=== PATIENT | female | born 1975 | race Two or more races ===

== ENCOUNTER 2016-11-18 00:02 | Emergency (ER) | payer OTHER ==
[2016-11-18 00:22] VITALS: TEMP 98.4
--- NOTE | 2016-11-18 00:28 | EDPHY ---
H & P HPI/ROS: CHIEF COMPLAINT: Multiple complaints HISTORY OF PRESENT ILLNESS: Patient arrives by EMS with complaints of paresthesias, spasms of the hands and feet, perioral cyanosis and tingling, near -syncope. Symptoms started abruptly upon arriving to a hospital where her daughter was being evaluated for possible syncope. She says that she felt the symptoms mildly at 1st. The began to worsen upon driving home. The symptoms persisted until she got home and called 911. At time of arrival she began to feel minimally better. At this time she is feeling significantly better. She had no chest pain. She does have a nonspecific rash that worsened during this. This has happened consistently over the past 3 years during similar episodes. She has no recent travel or surgery. No trauma or injury. No chest pain or shortness of breath. No fever chills. She reports removal of an implanon control device 2 months ago. Since then she has not had a full menstrual cycle but does have some spotting. No other associated complaints or modifying factors. All information was obtained with the assistance of Slovak educational sign language interpreter at bedside. REVIEW OF SYSTEMS: Ten systems reviewed and are negative unless otherwise noted in the HPI PAST MEDICAL HISTORY: Denies any medical diagnoses. Implanon removed 2 months ago. SOCIAL HISTORY: Nonsmoker. FAMILY HISTORY: Noncontributory EXAMINATION General Appearance: Alert, no distress Head: normocephalic, atraumatic Eyes: Pupils equal and round, no conjunctival pallor or injection ENT, Mouth: Mucous membranes moist. Airway widely patent. Uvula is midline. Neck: Normal inspection, supple, non-tender Respiratory: Lungs are clear to auscultation. No wheezing, rhonchi or crackles. Cardiovascular: Regular rate and rhythm. No murmur. Pulses intact distally in symmetrically. Gastrointestinal: Abdomen is soft and nontender Back: non-tender, no bony abnormalities Neurological: GCS 15. Cranial nerves 2-12 grossly intact. Strength is symmetric in all limbs. No pronator drift. A&O, nonfocal, normal gait Skin: Warm and dry. Macular rash to all 4 extremities, trunk and abdomen. Non petechial. No purpura. Extremities: Nontender, no pedal edema Psychiatric: Mood and affect normal DIFFERENTIAL DIAGNOSES: Including but not limited to anxiety reaction, panic attack, anxiety disorder, presyncope, near-syncope MDM: 12:20 a.m. Multiple complaints that are consistent with a likely anxiety reaction. This includes carpopedal spasm, paresthesias of the entire body, perioral cyanosis and paresthesia. She has had no chest pain. She is feeling significantly better at this time. She has had irregular menstrual cycles as she had a implant on removed 2 months ago. She does have some spotting. I will check a urine test. 12:40 a.m. Notified by RN that the patient felt that she saw blood in the toilet after providing a urine sample. I then performed digital rectal exam with female reshipping clerk (Jemima) present. There was no gross blood noted. No stool in the rectal vault. No abnormality on the rectal examination. Urine test is negative. I have ordered p.o. Ativan. 12:50 a.m. I discussed disposition with the patient with the assistance of a Slovak educational sign language interpreter. We discussed discharge home with follow-up with [facility] and short course of p. o. Ativan. She is comfortable with this plan and discharged home stable condition. SUPERVISION: Patient was evaluated in conjunction with the supervising physician. Please see their note for details. Source: Patient, Family, EMS, Art History Professor Exam Limitations: No limitations - Medical/Surgical History Hx Asthma: No Hx Chronic Respiratory Disease: No Hx Diabetes: No Hx Cardiac Disease: No Hx Renal Disease: No Hx Cirrhosis: No Hx Alcoholism: No Hx HIV/AIDS: No Hx Splenectomy or Spleen Trauma: No - Social History Smoking Status: Never smoked Constitutional: Initial Vital Signs Temperature (C) 98.4 F 11/18/16 00:05 Heart Rate 96 11/18/16 00:05 Respiratory Rate 20 11/18/16 00:05 Blood Pressure 121/94 H 11/18/16 00:05 O2 Sat (%) 100 11/18/16 00:05 O2 Delivery Mode Room Air Allergies/Adverse Reactions: No Known Allergies Allergy (Unverified 11/18/16 00:22) Home Medications: Medication Instructions Recorded NK [No Known Home Meds] 11/18/16 Medical Decision Making - Data Points Laboratory Results: 11/18/16 00:15 Urine Test NEGATIVE Departure - Departure Disposition: Home, Routine, Self-Care Clinical Impression: Anxiety Condition: Good Instructions: Anxiety (ED), Anxiolysis in Adults (ED), Lorazepam (By mouth) Additional Instructions: 1. Follow up with primary care physician 2. Return to ER for worsening symptoms Referrals: NONE *PRIMARY CARE P,. [Unknown] - As per Instructions [facility],. [Clinic] - As per Instructions Tacos Gagnon DO [Medical Doctor] - As per Instructions Print Language: Slovak
[2016-11-18] MEDS ORDERED: LORazepam 1 MG TAB PO ONE (00:35)
[2016-11-18] MEDS ORDERED: LORAZEPAM 1 MG PREPACK#4 BTL TAKEHOME ONE (00:50)
[2016-11-18 01:08] VITALS: BP 123/82; PULSE 76; RESP 16; O2SAT 96
== END 2016-11-18 01:07 | disposition home or self-care (01) ==
LOC: EDUNIT#
DX: F41.9 Anxiety disorder, unspecified (principal)